=== PATIENT | male | born 1985 | race Caucasian/White ===

== ENCOUNTER → 2017-01-15 11:41 | Emergency (ER) | payer OTHER ==
[~2017-01-15 11:41] MED LIST: Rabies Immune Globulin 10 ML* 150 UNIT/ML VIAL IM ONE; Rabies Vaccine, PCEC INJ* 1 ml IM ONE; Tetan/Diph/Pertus SYR(Tdap)* 0.5 ML SYR(BOOSTRIX) use SYR IM ONE
--- NOTE | 2017-01-15 16:24 | ED ---
Bite Injury/Animal - HPI Summary HPI Summary: 31 year old male presents with family with complaints of being exposed to a bat in their house last night. Patient woke up with bat in house that was killed and thrown away by parents. Patient does not have any known bites. Called [facility] who stated to come to the ER for rabies prophylaxis. Patient has not PMHx and no other complaints at this time. Animal is not available for testing. - History of Current Complaint Chief Complaint: EDAnimalBite Stated Complaint: BAT EXPOSURE Time Seen by Provider: 01/15/17 12:53 Hx Obtained From: Patient Onset of Injury: Happened hours ago Type of Bite: Wild Animal - bat Has Animal Been Immunized?: No Severity Currently: None Pain Intensity: 0 Pain Scale Used: 0-10 Numeric Animal Available for Observation: No Animal Control Notified: Yes - Allergies/Home Medications Allergies/Adverse Reactions: Allergies Allergy/AdvReac Type Severity Reaction Status Date / Time No Known Allergies Allergy Verified 01/15/17 12:00 PMH/Surg Hx/FS Hx/Imm Hx Endocrine/Hematology History: Denies: Hx Diabetes Cardiovascular History: Denies: Hx Hypertension Respiratory History: Denies: Hx Asthma - Surgical History Surgery Procedure, Year, and Place: none - Immunization History Date of Tetanus Vaccine: needs to be updated today 01/15/17 Immunizations Up to Date: Yes Infectious Disease History: No Infectious Disease History: Denies: Traveled Outside the [place] in Last 30 Days - Family History Known Family History: Positive: None - Social History Alcohol Use: None Substance Use Type: Reports: None Smoking Status (MU): Unknown if Ever Smoked Review of Systems Constitutional: Negative Cardiovascular: Negative Respiratory: Negative Musculoskeletal: Negative Skin: Negative Neurological: Negative All Other Systems Reviewed And Are Negative: Yes Physical Exam Triage Information Reviewed: Yes Vital Signs On Initial Exam: Initial Vitals Temp Pulse Resp BP Pulse Ox 98.6 F 103 18 143/87 97 01/15/17 12:01 01/15/17 12:01 01/15/17 12:01 01/15/17 12:01 01/15/17 12:01 Vital Signs Reviewed: Yes Appearance: Positive: Well-Appearing, No Pain Distress, Well-Nourished Skin: Positive: Warm, Skin Color Reflects Adequate Perfusion, Dry. Negative: Cold, Numb, Pale, Erythema @ Head/Face: Positive: Normal Head/Face Inspection Eyes: Positive: Conjunctiva Clear ENT: Positive: Hearing grossly normal Neck: Positive: Supple, Nontender Respiratory/Lung Sounds: Positive: Clear to Auscultation, Breath Sounds Present. Negative: Rales, Rhonchi, Wheezes Cardiovascular: Positive: Normal, RRR, Pulses are Symmetrical in both Upper and Lower Extremities. Negative: Murmur, Rub Bowel Sounds: Positive: Present Musculoskeletal: Positive: Normal, Strength/ROM Intact Neurological: Positive: Normal, Sensory/Motor Intact, Alert, Oriented to Person Place, Time Psychiatric: Positive: Affect/Mood Appropriate Diagnostics - Vital Signs Vital Signs Temp Pulse Resp BP Pulse Ox 01/15/17 13:04 98.6 F 103 18 143/87 97 01/15/17 12:01 98.6 F 103 18 143/87 97 - Laboratory Lab Statement: Any lab studies that have been ordered have been reviewed, and results considered in the medical decision making process. Bite Injury Course/Dx - Course Course Of Treatment: according to [facility] patient was prophylactically treated for rabies. aware of worsening signs and symptoms no concern for bites. tetanus also updated. follow up with [facility] and pcp. - Diagnoses Differential Diagnosis/HQI/PQRI: Positive: Laceration, Puncture, Rabies Exposure Provider Diagnosis: Need for prophylactic vaccination against rabies - Provider Notifications Discussed Care Of Patient With: [facility] Discharge - Discharge Plan Condition: Stable Disposition: HOME Patient Education Materials: Rabies Immune Globulin (By injection), Rabies Vaccine (By injection), Rabies (ED) Referrals: Ash JACOBSON,Alfredo Fernandez [Primary Care Provider] - Additional Instructions: Please follow up with health department for remaining immunizations on day 3, 7 and 14 as directed.
== END | disposition home or self-care (01) ==
LOC: ED 11:41
DX: Z20.3 Contact with and (suspected) exposure to rabies (principal)
CPT/HCPCS: 90375; 90471; 90675; 90715; 99281

== ENCOUNTER 2017-01-18 13:58 | Emergency (ER) | payer OTHER ==
[2017-01-18 14:04] VITALS: BP 137/74
[2017-01-18] MEDS ORDERED: Rabies Vaccine, PCEC INJ* 1 ml IM ONE (14:37)
--- NOTE | 2017-01-18 14:37 | UC ---
General HPI - HPI Summary HPI Summary: Here for Day 3 rabies vaccine number 2 after exposure to a bat - History of Current Complaint Chief Complaint: UCGeneralIllness Stated Complaint: RABIES VACC Time Seen by Provider: 01/18/17 14:27 Hx Obtained From: Patient Onset/Duration: Sudden Onset, Lasting Days Timing: Constant Current Severity: None - Allergy/Home Medications Allergies/Adverse Reactions: Allergies Allergy/AdvReac Type Severity Reaction Status Date / Time No Known Allergies Allergy Verified 01/18/17 14:01 Home Medications: Home Medications NK [No Home Medications Reported] 01/18/17 [History Confirmed 01/18/17] PMH/Surg Hx/FS Hx/Imm Hx Previously Healthy: Yes - Surgical History Surgical History: None Surgery Procedure, Year, and Place: none - Family History Known Family History: Positive: None - Social History Occupation: Employed Full-time Lives: With Family Alcohol Use: None Substance Use Type: None Smoking Status (MU): Unknown if Ever Smoked Review of Systems Constitutional: Negative Skin: Negative Eyes: Negative ENT: Negative Respiratory: Negative Cardiovascular: Negative Gastrointestinal: Negative Genitourinary: Negative Motor: Negative Neurovascular: Negative Musculoskeletal: Negative Neurological: Negative Psychological: Negative All Other Systems Reviewed And Are Negative: Yes Physical Exam Triage Information Reviewed: Yes Appearance: Well-Appearing, No Pain Distress, Obese Vital Signs: Initial Vital Signs Temp 97 F 01/18/17 14:01 Pulse 120 01/18/17 14:01 Resp 16 01/18/17 14:01 BP 137/74 01/18/17 14:01 Pulse Ox 97 01/18/17 14:01 Vital Signs Reviewed: Yes Eye Exam: Normal Eyes: Positive: Conjunctiva Clear ENT Exam: Normal ENT: Positive: Normal ENT inspection, Hearing grossly normal. Negative: Nasal congestion, Nasal drainage, Trismus, Muffled/hoarse voice Dental Exam: Normal Neck exam: Normal Neck: Positive: Supple, Nontender Respiratory Exam: Normal Respiratory: Positive: Chest non-tender, No respiratory distress, No accessory muscle use Cardiovascular Exam: Normal Cardiovascular: Positive: Brisk Capillary Refill Musculoskeletal Exam: Normal Musculoskeletal: Positive: Strength Intact, ROM Intact, No Edema Neurological Exam: Normal Neurological: Positive: Alert, Muscle Tone Normal Psychological Exam: Normal Skin Exam: Normal Course/Dx - Course Course Of Treatment: Rabies vaccine number 2 day 3 of treatment - Differential Dx - Multi-Symptom Differential Diagnoses: Other - rabies treatment, Provider Diagnoses: Rabies Post exposure treatment Discharge - Discharge Plan Condition: Stable Disposition: HOME Patient Education Materials: Rabies Vaccine (By injection) Referrals: Ash JACOBSON,Alfredo Fernandez [Primary Care Provider] - If Needed Additional Instructions: Continue with vaccine series
[2017-01-18] MEDS ORDERED: Rabies VIRUS VACCINE, HDCV* 2.5 UNIT/ML 1 ML IM ONE (15:00)
== END 2017-01-18 15:35 | disposition home or self-care (01) ==
LOC: UCEAST 13:58
DX: Z20.3 Contact with and (suspected) exposure to rabies (principal); E66.9 Obesity, unspecified; Z23 Encounter for immunization
CPT/HCPCS: 90471; 90675; 99211; G0463

== ENCOUNTER 2017-01-22 07:06 | Emergency (ER) | payer OTHER ==
[2017-01-22 07:27] VITALS: BP 136/65
[2017-01-22] MEDS ORDERED: Rabies VIRUS VACCINE, HDCV* 2.5 UNIT/ML 1 ML IM ONE (07:43)
--- NOTE | 2017-01-22 07:47 | UC ---
Bite Injury/Animal HPI - HPI Summary HPI Summary: 31 yo male here under the instruction of [facility] for day #7 rabies vax bats in house no known bite no complaints - History of Current Complaint Chief Complaint: UCGeneralIllness Stated Complaint: RABIES EXPOSURE Time Seen by Provider: 01/22/17 07:39 Hx Obtained From: Patient Pain Intensity: 0 Has Animal Been Immunized?: N/A Associated Signs And Symptoms: Positive: Negative Animal Available for Observation: No - Allergies/Home Medications Allergies/Adverse Reactions: Allergies Allergy/AdvReac Type Severity Reaction Status Date / Time No Known Allergies Allergy Verified 01/18/17 14:01 PMH/Surg Hx/FS Hx/Imm Hx Previously Healthy: Yes - Surgical History Surgical History: None Surgery Procedure, Year, and Place: none - Family History Known Family History: Positive: Hypertension - Social History Alcohol Use: None Substance Use Type: None Smoking Status (MU): Never Smoked Tobacco Review of Systems Constitutional: Negative Skin: Negative Eyes: Negative ENT: Negative Respiratory: Negative Cardiovascular: Negative Gastrointestinal: Negative Genitourinary: Negative Motor: Negative Neurovascular: Negative Musculoskeletal: Negative Neurological: Negative Psychological: Negative All Other Systems Reviewed And Are Negative: Yes Physical Exam Triage Information Reviewed: Yes Appearance: Well-Appearing, No Pain Distress, Well-Nourished Vital Signs: Initial Vital Signs Temp 98.6 F 01/22/17 07:23 Pulse 100 01/22/17 07:23 Resp 16 01/22/17 07:23 BP 136/65 01/22/17 07:23 Pulse Ox 99 01/22/17 07:23 Vital Signs Reviewed: Yes Eyes: Positive: Conjunctiva Clear ENT: Positive: Hearing grossly normal. Negative: Nasal congestion, Nasal drainage, Muffled/hoarse voice Neck: Positive: Supple, Nontender, No Lymphadenopathy Respiratory: Positive: Lungs clear, Normal breath sounds, No respiratory distress, No accessory muscle use Cardiovascular: Positive: RRR, No Murmur Skin Exam: Normal Bite Injury Course/Dx - Differential Dx/Diagnosis Provider Diagnoses: rabies vaccination per [facility]. bat exposure. elevated BP Discharge - Discharge Plan Condition: Stable Disposition: HOME Patient Education Materials: Rabies Vaccine (ED) Referrals: Ash JACOBSON,Alfredo Fernandez [Primary Care Provider] - 2 Weeks (recheck BP) Additional Instructions: return as direct for next vaccine
== END 2017-01-22 08:00 | disposition home or self-care (01) ==
LOC: UCEAST 07:06
DX: Z20.3 Contact with and (suspected) exposure to rabies (principal); Z23 Encounter for immunization; R03.0 Elevated blood-pressure reading, without diagnosis of hypertension
CPT/HCPCS: 90471; 99211; G0010; G0463

== ENCOUNTER 2017-01-29 07:09 | Emergency (ER) | payer OTHER ==
[2017-01-29 07:25] VITALS: BP 130/72
[2017-01-29] MEDS ORDERED: Rabies VIRUS VACCINE, HDCV* 2.5 UNIT/ML 1 ML IM ONE (07:35)
--- NOTE | 2017-01-29 08:15 | UC ---
UC General HPI - HPI Summary HPI Summary: 31 YEAR OLD MALE PRESENTS FOR RABIES VACCINE. NO ACUTE ISSUES. - History of Current Complaint Chief Complaint: UCBiteInjury Stated Complaint: RABIES SHOT Time Seen by Provider: 01/29/17 07:35 Hx Obtained From: Patient Onset/Duration: Sudden Onset Onset Severity: Moderate Current Severity: Moderate - Allergy/Home Medications Allergies/Adverse Reactions: Allergies Allergy/AdvReac Type Severity Reaction Status Date / Time No Known Allergies Allergy Verified 01/29/17 07:26 PMH/Surg Hx/FS Hx/Imm Hx Previously Healthy: Yes - Surgical History Surgical History: None Surgery Procedure, Year, and Place: none - Family History Known Family History: Positive: None, Hypertension - Social History Alcohol Use: None Substance Use Type: None Smoking Status (MU): Unknown if Ever Smoked Amount Used/How Often: 1 can daily Review of Systems Constitutional: Negative Skin: Negative Eyes: Negative ENT: Negative Respiratory: Negative Cardiovascular: Negative Gastrointestinal: Negative Genitourinary: Negative Motor: Negative Neurovascular: Negative Musculoskeletal: Negative Neurological: Negative Psychological: Negative All Other Systems Reviewed And Are Negative: Yes Physical Exam Triage Information Reviewed: Yes Vital Signs: Initial Vital Signs Temp 37.3 C 01/29/17 07:21 Pulse 93 01/29/17 07:21 Resp 14 01/29/17 07:21 BP 130/72 01/29/17 07:21 Pulse Ox 98 01/29/17 07:21 Eye Exam: Normal ENT Exam: Normal Dental Exam: Normal Neck exam: Normal Neck: Positive: 1 Respiratory Exam: Normal Cardiovascular Exam: Normal Abdominal Exam: Normal Musculoskeletal Exam: Normal Neurological Exam: Normal Psychological Exam: Normal Skin Exam: Normal Course/Dx - Differential Dx - Multi-Symptom Provider Diagnoses: RABIES VACCINE Discharge - Discharge Plan Condition: Stable Disposition: HOME Patient Education Materials: Rabies (ED), Rabies Vaccine (ED) Referrals: Ash JACOBSON,Alfredo Fernandez [Primary Care Provider] -
== END 2017-01-29 08:13 | disposition home or self-care (01) ==
LOC: UCEAST 07:09
DX: Z23 Encounter for immunization (principal)
CPT/HCPCS: 90471; 99211; G0463

== ENCOUNTER 2018-05-08 20:47 | Emergency (ER) | payer OTHER ==
[2018-05-08 22:28] LABS: Hematocrit 43 % (42-52); Hemoglobin 14.7 g/dl (14.0-18.0); Mean Corpuscular HGB Conc 34 g/dl (31-36); Mean Corpuscular Hemoglobin 29 pg (27-31); Mean Corpuscular Volume 85 fL (80-94); Mean Platelet Volume 8.9 fL (7.4-10.4); Platelet Count 226 10^3/ul (150-450); Red Blood Count 5.09 10^6/ul (4.00-5.40); Red Cell Distribution Width 13 % (10.5-15)
[2018-05-08 22:47] LABS: EGFR Non-African American 91.4 (>60)
--- NOTE | 2018-05-08 23:47 | ED ---
Palpitations / Dysrhythmia - HPI Summary HPI Summary: Patient complains of sensation of irregular heart rate has been occurring intermittently over the past 4 months. Denies chest pain, prior cardiac history. States sensation of irregular heart rate occurs when he is anxious, resolves when he relaxes. Described as a sensation that wash is over his chest , lasts seconds at a time. History of anxiety attacks. Patient was evaluated for same symptoms 05/05/18 at urgent care for same symptoms and was prescribed Atarax for anxiety. Patient states he feels better with physical activity like shoveling snow or walking through the snow. Denies exertional shortness of breath or chest pain. Denies prior cardiac history. No cardiac risk factors. No medical history. Nonsmoker. - History of Current Complaint Chief Complaint: EDDysrhythmPalp Time Seen by Provider: 05/08/18 22:19 Hx Obtained From: Patient Onset/Duration: Gradual Onset, Lasting Weeks Timing: Intermittent Episodes Lasting: Severity Initially: Mild Severity Currently: None Character: Irregular Aggravating: Other Alleviating: Rest - Allergy/Home Medications Allergies/Adverse Reactions: Allergies Allergy/AdvReac Type Severity Reaction Status Date / Time nectarine Allergy Severe See Comment Uncoded 05/05/18 10:44 PMH/Surg Hx/FS Hx/Imm Hx Endocrine/Hematology History: Denies: Hx Anticoagulant Therapy, Hx Diabetes, Hx Thyroid Disease Cardiovascular History: Denies: Hx Cardiac Arrest, Hx Hypertension Respiratory History: Denies: Hx Asthma, Hx Chronic Obstructive Pulmonary Disease (COPD) GI History: Denies: Hx Ulcer History: Denies: Hx Dialysis Neurological History: Denies: Hx CVA - Surgical History Surgery Procedure, Year, and Place: tonsils - Immunization History Date of Tetanus Vaccine: needs to be updated today 01/15/17 Infectious Disease History: No Infectious Disease History: Denies: Hx Hepatitis, Hx Human Immunodeficiency Virus (HIV), History Other Infectious Disease, Traveled Outside the [place] in Last 30 Days - Family History Known Family History: Positive: None, Cardiac Disease - GF only, age over 80, had stents, Hypertension - Social History Alcohol Use: None Substance Use Type: Reports: None Smoking Status (MU): Never Smoked Tobacco Amount Used/How Often: 1 can daily Review of Systems Constitutional: Negative Eyes: Negative ENT: Negative Positive: Chest Pain Respiratory: Negative Gastrointestinal: Negative Genitourinary: Negative Musculoskeletal: Negative Skin: Negative Neurological: Negative Psychological: Normal All Other Systems Reviewed And Are Negative: Yes Physical Exam - Summary Physical Exam Summary: Chest pain not reproducible. Triage Information Reviewed: Yes Vital Signs On Initial Exam: Initial Vitals Temp Pulse Resp BP Pulse Ox 98.5 F 81 18 148/79 97 05/08/18 21:02 05/08/18 21:02 05/08/18 21:02 05/08/18 21:02 05/08/18 21:02 Vital Signs Reviewed: Yes Appearance: Positive: Well-Appearing Skin: Positive: Warm Head/Face: Positive: Normal Head/Face Inspection Eyes: Positive: Normal Neck: Positive: Supple Respiratory/Lung Sounds: Positive: Clear to Auscultation Cardiovascular: Positive: Normal Abdomen Description: Positive: Nontender Musculoskeletal: Positive: Normal Neurological: Positive: Normal Psychiatric: Positive: Normal AVPU Assessment: Alert - Bogdan Coma Scale Best Eye Response: 4 - Spontaneous Best Motor Response: 6 - Obeys Commands Best Verbal Response: 5 - Oriented Coma Scale Total: 15 Diagnostics - Vital Signs Vital Signs Temp Pulse Resp BP Pulse Ox 05/08/18 21:02 98.5 F 81 18 148/79 97 - Laboratory Lab Results: Lab Results 05/08/18 05/08/18 Range/Units 22:18 22:18 WBC 9.0 (3.5-10.8) 10^3/ul RBC 5.09 (4.00-5.40) 10^6/ul Hgb 14.7 (14.0-18.0) g/dl Hct 43 (42-52) % MCV 85 (80-94) fL MCH 29 (27-31) pg MCHC 34 (31-36) g/dl RDW 13 (10.5-15) % Plt Count 226 (150-450) 10^3/ul MPV 8.9 (7.4-10.4) fL Sodium 137 (135-145) mmol/L Potassium 4.0 (3.5-5.0) mmol/L Chloride 104 (101-111) mmol/L Carbon Dioxide 26 (22-32) mmol/L Anion Gap 7 (2-11) mmol/L BUN 13 (6-24) mg/dL Creatinine 0.96 (0.67-1.17) mg/dL Est GFR ( Amer) 110.5 (>60) Est GFR (Non-Af Amer) 91.4 (>60) BUN/Creatinine Ratio 13.5 (8-20) Glucose 107 H (70-100) mg/dL Calcium 10.0 (8.6-10.3) mg/dL Magnesium 2.2 (1.9-2.7) mg/dL Total Bilirubin 0.60 (0.2-1.0) mg/dL AST 18 (13-39) U/L ALT 22 (7-52) U/L Alkaline Phosphatase 65 (34-104) U/L Total Protein 7.5 (6.4-8.9) g/dL Albumin 4.9 (3.2-5.2) g/dL Globulin 2.6 (2-4) g/dL Albumin/Globulin Ratio 1.9 (1-3) TSH 1.90 (0.34-5.60) mcIU/mL Free T4 1.05 (0.61-1.12) ng/dL Result Diagrams: 05/08/18 22:18 05/08/18 22:18 Lab Statement: Any lab studies that have been ordered have been reviewed, and results considered in the medical decision making process. Course/Dx - Course Course Of Treatment: Patient complains of sensation of irregular heart rate has been occurring intermittently over the past 4 months. Denies chest pain, prior cardiac history. States sensation of irregular heart rate occurs when he is anxious, resolves when he relaxes. Described as a sensation that wash is over his chest, lasts seconds at a time. History of anxiety attacks. Patient was evaluated for same symptoms 05/05/18 at urgent care for same symptoms and was prescribed Atarax for anxiety. Patient states he feels better with physical activity like shoveling snow or walking through the snow. Denies exertional shortness of breath or chest pain. Denies prior cardiac history. No cardiac risk factors. No medical history. Nonsmoker. Denies illegal or illegal stimulants. Physical exam:Chest pain not reproducible. Vital signs within normal limits. Chest x-ray negative. Labs unremarkable. EKG unremarkable. Symptoms have resolved here in the ED. Likely anxiety related chest discomfort. Patient advised to try anxiety reducing techniques as well as taking Atarax 25-50 mg 4 runaway events of anxiety. - Diagnoses Provider Diagnoses: Anxiety, Atypical chest pain Discharge - Sign-Out/Discharge Documenting (check all that apply): Patient Departure - Discharge Plan Condition: Stable Disposition: HOME Patient Education Materials: Anxiety (ED) Referrals: Ash JACOBSON,Alfredo Fernandez [Primary Care Provider] - Additional Instructions: Follow-up with primary care. Return to the ED for any new or worsening symptoms - Billing Disposition and Condition Condition: STABLE Disposition: Home
[2018-05-09 00:10] VITALS: BP 136/70
== END 2018-05-09 00:09 | disposition home or self-care (01) ==
LOC: ED 20:47
DX: R07.89 Other chest pain (principal); F41.9 Anxiety disorder, unspecified; F17.220 Nicotine dependence, chewing tobacco, uncomplicated
CPT/HCPCS: 36415; 80053; 83735; 84439; 84443; 85027; 93005; 99282